=== PATIENT | female | born 1945 | race Caucasian/White ===

== ENCOUNTER 2017-12-26 01:39 | Inpatient (IN) | payer OTHER, MEDICARE ==
[~2017-12-26] VITALS: Ht 149.9 cm; Wt 64.6 kg
[~2017-12-26 01:39] MED LIST: ALLEGRA ALLERG180 M1 PO; ARICEPT10 M1 PO; ASPIRIN EC81 M1 PO; CELEBREX50 M1 PO; COQ-10100 MG; DILTIAZEM 24HR240 M1 PO; ESTRADIOL0.5 M1 PO; LEXAPRO20 M1 PO; LIPITOR40 M1 PO; LISINOPRIL40 M1 PO; NAMENDA XR28 M1 PO; OMEPRAZOLE40 M1 PO; SYNTHROID75 MCG PO; VITAMIN B-121000 MC3 PO
[2017-12-26] MEDS ORDERED: ASPIRIN EC325 M2 PO ×2 (11:24→15:23)
[2017-12-26] MEDS ORDERED: COLACE100 M1 PO (11:24)
[2017-12-26] MEDS ORDERED: MIRALAX17 G1 PO (11:24)
[2017-12-26] MEDS ORDERED: NORCO 5-325 TA1 EACH PO (11:24)
--- NOTE | 2017-12-26 11:43 | Surg Short-stay <48hrs Dis Sum ---
Visit Information Visit Dates Admission Date: 12/26/17 Discharge Date: 12/28/17 Surgical Short Stay DC Summary Admission Diagnosis: RIGHT KNEE OSTEOARHTRITIS Final Diagnosis: RIGHT KNEE OSTEOARTHRITIS Procedure(s): RIGHT TOTAL KNEE ARTHROOPLASTY Summary/Significant Findings: Patient was admitted to the hospital for an elective total joint replacement. The procedure was tolerated well and patient was transferred to a general surgical floor. Diet was advanced and tolerated, and the patient voided spontaneously. The patient was evaluated and treated by physical therapy. At the time of hospital discharge, the vital signs were stable, neurovascular status was intact, and pain was controlled with the use of oral pain medications. Condition at Discharge: STABLE Discharge Disposition: home health services Discharge instructions provided to patient/family: Yes Post discharge follow-up plan: CALL OFFICE FOR FOLLOW-UP APPOINTMENT Copies to: Gee Reeves MD
--- NOTE | 2017-12-26 11:47 | Patient Discharge Instructions ---
Discharge Instructions General Discharge Information You were seen/treated for: RIGHT KNEE OSTEOARTHRITIS You had these procedures: RIGHT TOTAL KNEE REPLACEMENT Watch for these problems: Increasing pain despite the use of pain medication Increasing redness, warmth or swelling Drainage of any type from incision Inability to bear weight on operative leg Persistent nausea and vomiting Fever greater than 101.5 degrees Please keep wound clean and dry. No ointments or lotions of any type on or near incision at any time. No exceptions. Your dressing will be changed by your nurse on the second day after your surgery. Daily dry dressing changes are recommended each day thereafter. Do not soak your wound in a bath at any time until otherwise indicated by your surgeon. You may shower, please dry wound immediately after shower with a clean towel. Call Surgeon to remove: Armani (2 WEEKS) Do not soak the wound: No Daily wet to dry dressings: No No bath, but you may shower: No Diet Continue normal diet: Yes Activity Full Activity/No Limits: No (NOTHING STRENUOUS) Activity Self Limited: Yes Activity Limited to: Weight bear as tolerated Acute Coronary Syndrome Inclusion Criteria At DC or during hospital stay patient has or had the following: ACS DIAGNOSIS No Discharge Core Measures Meds if any: Prescribed or Continued at Discharge SELINA/ARB if EF <40% No Meds if any: NOT Prescribed or Continued at Discharge Congestive Heart Failure Inclusion Criteria At DC or during hospital stay patient has or had the following: CHF DIAGNOSIS No Discharge Core Measures Meds if any: Prescribed or Continued at Discharge Meds if any: NOT Prescribed or Continued at Discharge Cerebrovascular accident Inclusion Criteria At DC or during hospital stay patient has or had the following: CVA/TIA Diagnosis No Discharge Core Measures Meds if any: Prescribed or Continued at Discharge Antithrombotic No Statin (required if LDL =>70) No Anticoagulant Yes Meds if any: NOT Prescribed or Continued at Discharge Venous thromboembolism Inclusion Criteria VTE Diagnosis No VTE Type NONE VTE Confirmed by (Test) NONE Discharge Core Measures - Per Current guidelines, there needs to be overlap - treatment for the first 5 days of Warfarin therapy. - If discharged on Warfarin prior to 5 days of - overlap therapy, the patient will need to be - assessed for post discharge needs including - *Post discharge parental anticoagulation - *Warfarin and/or parental anticoagulation education - *Follow up date to check INR post discharge At least 5 days overlap therapy as Inpatient No Meds if any: Prescribed or Continued at Discharge Note: Overlap Therapy is Warfarin and Anticoagulant Meds if any: NOT Prescribed or Continued at Discharge
--- NOTE | 2017-12-26 13:44 | Operative Report ---
Operative/Inv Procedure Report Surgery Date: 12/26/17 Name of Procedure: Right total knee replacement Pre-Operative Diagnosis: Primary right knee DJD Post-Operative Diagnosis: Same Estimated Blood Loss: 50ml to 100ml Surgeon/Soda Tester: Lala JAIMES,Gee Johnson Anesthesia: block Operative/Procedure Note Note: Description of Procedure: The patient was taken to the operating room and positively identified. After induction of spinal anesthesia and administration of appropriate pre-operative antibiotics, the patient was positioned supine on the operating room table and all bony prominences were well padded. A well-padded pneumatic tourniquet was placed on the right upper thigh. After performing a surgical timeout, the right lower extremity was prepped and draped in the usual sterile fashion. After exsanguination with Esmarch the tourniquet was inflated to 250mm of mercury. A standard medial parapatellar approach was made to the knee. This was carried down through skin and subcutaneous tissue to the level of the fascia. Meticulous hemostasis was maintained with Bovie electrocautery. The extensor mechanism and patellar retinaculum were opened sharply and the patella was everted. The infrapatellar fat was resected in order to improve exposure. Osteophytes were trimmed from the patella and femoral condyles and the patella was re-everted and tucked laterally. A medial release was performed and the cruciate ligaments were resected. The tibia was then subluxed anteriorly. Utilizing the appropriate extra-medullary guide, the proximal tibia was trimmed perpendicular to the long axis of the tibial shaft. Attention was then turned to the femur. After opening the medullary canal, the distal femoral cut was made in 6 degrees of valgus utilizing the appropriate intra-medullary guide. The extension gap was checked and found to be appropriate. The femur was then sized and the remainder of the femoral cuts were made with a size #2 4-in-1 femoral cutting guide. The flexion gap was checked and found to be symmetric and appropriate. The knee was then trialed with a size #2 CR femoral component, a size #2 tibial component and a size 11 CS mm polyethylene insert. The patella was trimmed to accept an A 29 patella. This yielded excellent range of motion, stability and patellar tracking. All trial components were removed and the knee was copiously irrigated with sterile saline. All components were cemented into place with [employer] Simplex cement. All the components were of the [employer] Triathlon knee system of the above stated sizes. The knee was again irrigated after cementation. The extensor mechanism and patellar retinaculum were repaired using interrupted #1 vicryl suture. The skin was re-approximated with 2-0 vicryl and closed with maycol. A sterile dressing was applied, the tourniquet was deflated, the patient was awakened and taken to the recovery room in satisfactory condition.
[2017-12-26 14:55] VITALS: BP 124/80
[2017-12-26 15:14] VITALS: BP 110/70
--- NOTE | 2017-12-26 15:28 | Admission Core Measures ---
Acute Coronary Syndrome (CM) ACS Core Measures Acute Coronary Syndrome Diagnosis No Congestive Heart Failure (NEW) CHF Core Measures Congestive Heart Failure Diagnosis No Cerebrovascular Accident (NEW) CVA Core Measures CVA/TIA Diagnosis No Venous Thromboembolism VTE Core Chaya (View Protocol) VTE Risk Factors Surgery No Mechanical VTE Prophylaxis d/t N/A MechProphylax Ordered No VTE Pharm Prophylaxis d/t NA PharmProphylax ordered Problem List As ranked by this Provider includes Assessment & Plan 1. Unilateral primary osteoarthritis, right knee HOME MEDS Home Med List Aspirin (Ecotrin*) 81 MG TABLET.DR 1 TAB PO DAILY CARDIAC (Reported) Aspirin (Ecotrin*) 325 MG TABLET.DR 1 TAB PO BID DVT PROPHYLAXIS Atorvastatin Calcium (Lipitor) 40 MG TABLET 1 TAB PO DAILY CHOLESTEROL ( Reported) Celecoxib (Celebrex) 50 MG CAPSULE 1 CAP PO DAILY PAIN (Reported) Cyanocobalamin (Vitamin B-12) 1,000 MCG TABLET 1 TAB PO DAILY SUPPLEMENT ( Reported) Diltiazem HCl (Diltiazem 24HR Cd) 240 MG CAP.ER.24H 1 CAP PO D HTN (Reported) Docusate Sodium (Colace) 100 MG CAPSULE 1 CAP PO BID PREVENT CONSTIPATION Donepezil HCl (Aricept) 10 MG TABLET 1 TAB PO QPM ALZHEIMER (Reported) Escitalopram Oxalate (Lexapro) 20 MG TABLET 1 TAB PO DAILY MOOD (Reported) Estradiol 0.5 MG TABLET 1 TAB PO DAILY REPLACEMENT (Reported) Fexofenadine HCl (Elizabeth Allergy) 180 MG TABLET 1 TAB PO DAILY ALLERGIES ( Reported) Hydrocodone/Acetaminophen ([place] 5-325 Tablet) 5 MG-325 MG TABLET 1-2 TAB PO Q4-6 PRN PRN POSTOP PAIN Levothyroxine Sodium (Synthroid) 75 MCG TABLET 1 TAB PO DAILY REPLACEMENT ( Reported) Lisinopril 40 MG TABLET 1 TAB PO DAILY HTN (Reported) Memantine HCl (Namenda XR) 28 MG CAP.SPR.24 1 CAP PO DAILY ALHEIMER (Reported ) Omeprazole 40 MG CAPSULE.DR 1 CAP PO DAILY GERD (Reported) Polyethylene Glycol 3350 (Miralax) 17 GRAM POWD.PACK 1 PAC PO DAILY PREVENTION CONSTIPATION
--- NOTE | 2017-12-26 15:35 | PN- Orthopedic ---
Subjective Subjective: No acute post operative events reported. Pt states that she has some residual numbness to her operative leg. She is without complaints of chest pain, shortness of breath and difficulty breathing. She is without complaints of nausea and vomitting. She has been oob to chair with PT, however, did not ambulate due to right leg block in place. She has voided. Objective Vital Signs and I&Os Vital Signs Date Time Temp Pulse Resp B/P B/P Pulse O2 O2 Flow FiO2 Mean Ox Delivery Rate 12/26 1514 98.1 65 16 110/70 95 Room Air Room Air Intake & Output 12/26 1600 12/26 0800 12/26 0000 12/25 1600 12/25 0800 12/25 0000 Intake Total Output Total Balance Patient 136 lb 135 lb Weight Weight Reported by Patient Measurement Method Physical Exam: General: Alert, oriented to person, place and time Cardiac: Pulm: Abd: Extremities: Moves all extremities, distal sensation intact. Skin warm and well perfused. DP pulses palpable. Dressing dry and intact. On Q in pace. Bilateral calves soft and non-tender. Assessment/Plan Assessment/Plan This is a 72 year old female, POD 0, s/p R tkr. PMH signficant for alzheimers and htn. Has social hx of smoking, 5 cigarettes per day -add nicotine patch now -vicodin for pain control, no added offirmev -ASA 325 bid for dvt ppx -OOB, wbat, assist at all times when standing or ambulating -ancef x2 additional doses for abx ppx -bowel regimen scheduled anticipate dc to str in 2 nights will discuss poc with Dr. Reeves Core Measures Venous Thromboembolism VTE Risk Factors Surgery No Mechanical VTE Prophylaxis d/t N/A MechProphylax Ordered No VTE Pharm Prophylaxis d/t NA PharmProphylax ordered
[2017-12-26 19:18] VITALS: BP 118/64
[2017-12-26 22:16] VITALS: BP 152/70
[2017-12-27 01:13] VITALS: BP 134/68
[2017-12-27 04:25] VITALS: BP 170/80
--- NOTE | 2017-12-27 09:15 | PN- Orthopedic ---
Subjective Subjective: Pt. is demented but cooperative. She did not remeber having surgey yesterday. She denies pain. Had breakfast without nausea. Ambularted with PT this morning. Objective Vital Signs and I&Os Vital Signs Date Time Temp Pulse Resp B/P B/P Pulse O2 O2 Flow FiO2 Mean Ox Delivery Rate 12/27 0809 83 170/80 05/ 0425 98.0 83 20 170/80 95 Room Air 12/27 0113 97.8 63 20 134/68 94 Room Air 12/26 2216 98.2 74 20 152/70 94 Room Air 12/26 2201 Room Air Room Air 12/26 1918 98.0 67 20 118/64 92 Room Air 12/26 1709 110/70 05/ 1514 98.1 65 16 110/70 95 Room Air Room Air Intake & Output / 1600 / 0800 / 0000 / 1600 12/26 0800 / 0000 Intake Total 400 225 Output Total Balance 400 225 Intake, IV 400 225 Patient 142 lb 136 lb Weight Weight Reported by Patient Measurement Method Alert, no distress.Sitting in chair. Lungs clear bilat Heart regular Abdomen soft, enrrique distended. RLE with dressing / Jacoby bandage on. On Q pump in place , insertion site intact. Nerorovascular check intact/ Good peripheral perfusion. No edema. Assessment/Plan Assessment/Plan s/p R TKA POD#1 , baseline dementia. Stable. Mildly elevated BP, currently on home meds.Continue to monitor. RLE perfusion and neurovascular check intact.Working with PT to increase ambulation/ mobilty and emdurance. Dementia is baseline. Pt. is cooperative, follows directions. On ASA BID for anticoagulation Dressing change and removal On Q pump tomorrow. Pt. is currently comfortable on current regimen. I anticipate d/c to STR tomorrow. Core Measures Venous Thromboembolism VTE Risk Factors Surgery No Mechanical VTE Prophylaxis d/t N/A MechProphylax Ordered No VTE Pharm Prophylaxis d/t NA PharmProphylax ordered
[2017-12-27 09:44] LABS: ABSOLUTE BASOPHIL COUNT 0 /CUMM (0.0-0.2); ABSOLUTE EOSINOPHIL COUNT 0 /CUMM (0.0-0.7); ABSOLUTE GRANULOCYTE CT 11.8 /CUMM (1.4-6.5); ABSOLUTE LYMPH COUNT 0.8 /CUMM (1.2-3.4); ABSOLUTE MONOCYTE COUNT 0.9 /CUMM (0.10-0.60); BASOPHIL % 0.1 % (0.0-2.0); EOSINOPHIL % 0 % (0-5); GRANULOCYTE % 87.3 % (42.2-75.2); HEMATOCRIT 35.2 % (37-47); MEAN CORPUSCULAR HGB 32.3 PG (27.0-31.0); MEAN CORPUSCULAR HGB CONC 33.7 G/DL (33.0-37.0); MEAN CORPUSCULAR VOLUME 95.9 FL (81.0-99.0); MEAN PLATELET VOLUME 9.7 FL (7.4-10.4); PLATELET COUNT 282 /CUMM (130-400); RED BLOOD CELL CT 3.67 /CUMM (4.20-5.40); WHITE BLOOD CELL COUNT 13.5 /CUMM (4.8-10.8)
[2017-12-27 11:18] VITALS: BP 136/64
[2017-12-27 16:30] VITALS: BP 150/80
[2017-12-27 22:46] VITALS: BP 130/76
[2017-12-28 06:59] VITALS: BP 136/68
--- NOTE | 2017-12-28 07:42 | PN- Orthopedic ---
Subjective Subjective: Patient doing well this morning. Pain well controlled. Ambulating, voiding and tolerating a regular diet. No other issues or complaints. Objective Vital Signs and I&Os Vital Signs Date Time Temp Pulse Resp B/P B/P Pulse O2 O2 Flow FiO2 Mean Ox Delivery Rate 12/28 0659 97.7 74 20 136/68 94 / 2246 98.0 74 20 130/76 97 Room Air 12/27 1630 98.0 68 18 150/80 95 Room Air 12/27 1118 98.7 80 18 136/64 95 Room Air 12/27 0809 83 170/80 Intake & Output 12/28 0800 12/28 0000 12/27 1600 12/27 0800 12/27 0000 12/26 1600 Intake Total 350 400 225 Output Total 750 500 Balance -750 -150 400 225 Intake, IV 400 225 Intake, Oral 350 Output, Urine 750 500 Patient 142 lb 136 lb Weight Weight Reported by Patient Measurement Method Physical Exam: General: A, A, NAD Extremities: Right Jacoby in place, this was taken down, incision is c/d/i with amycol in place, no surrounding edema, erythema or ecchymosis Current Medications: Current Medications Sig/Tirso Start time Last Medication Dose Route Stop Time Status Admin Aspirin Buffered 325 MG BID 12/27 0900 AC 12/27 PO 2044 Atorvastatin Calcium 20 MG 1700 12/26 1700 AC 12/27 PO 1720 Dextrose/Sodium 1,000 ML .[id number] 12/26 111 DC 12/26 Chloride IV 1714 Diltiazem HCl 240 MG DAILY 12/26 1108 AC 12/27 PO 0812 Docusate Sodium 100 MG BID 12/26 2100 AC 12/27 PO 2044 Donepezil HCl 10 MG AT BEDTIME 12/26 2100 AC 12/27 PO 2044 Estradiol 0.5 MG DAILY 12/26 1107 AC 12/27 PO 0811 Hydrocodone Bitart/ 1 TAB Q6P PRN 12/26 1115 AC 12/27 Acetaminophen PO 1753 Hydrocodone Bitart/ 2 TAB Q6P PRN 12/26 1115 AC 12/28 Acetaminophen PO 0327 Levothyroxine Sodium 0.075 MG DAILY AC 12/26 1106 AC 12/28 PO 0559 Lisinopril 40 MG DAILY 12/26 1106 AC 12/27 PO 0809 Melatonin 5 MG AT BEDTIME 12/27 2100 AC 12/27 PO 2043 Memantine 10 MG BID 12/26 2100 AC 12/27 PO 204 Morphine Sulfate 2 MG Q2P PRN 12/26 1115 AC 12/27 IV 2231 Nicotine 14 MG DAILY 12/26 1545 AC 12/27 TOP 0809 Omeprazole 40 MG DAILY AC 12/26 1104 AC 12/28 PO 0559 Ondansetron HCl 4 MG Q6P PRN 12/26 1115 AC IV Patient Medication 1 ED ONE ONE 12/27 1215 DC Teaching ED 12/27 1216 Polyethylene Glycol 17 GM DAILY 12/27 0900 AC 12/27 PO 0809 Results Last 48 Hours of Labs: Laboratory Tests 12/27 804 Chemistry Sodium (137 - 145 mmol/L) 140 Potassium (3.5 - 5.1 mmol/L) 3.8 Chloride (98 - 107 mmol/L) 103 Carbon Dioxide (22 - 30 mmol/L) 26 Anion Gap (5 - 16) 11 BUN (7 - 17 mg/dL) 12 Creatinine (0.5 - 1.0 mg/dL) 0.8 Estimated GFR (>60 ml/min) > 60 BUN/Creatinine Ratio (7 - 25 %) 15.0 Hematology CBC w Diff MAN DIFF ORDERED WBC (4.8 - 10.8 /CUMM) 13.5 H RBC (4.20 - 5.40 /CUMM) 3.67 L Hgb (12.0 - 16.0 G/DL) 11.9 L Hct (37 - 47 %) 35.2 L MCV (81.0 - 99.0 FL) 95.9 MCH (27.0 - 31.0 PG) 32.3 H MCHC (33.0 - 37.0 G/DL) 33.7 RDW (11.5 - 14.5 %) 14.0 Plt Count (130 - 400 /CUMM) 282 MPV (7.4 - 10.4 FL) 9.7 Gran % (42.2 - 75.2 %) 87.3 H Lymphocytes % (20.5 - 51.1 %) 5.8 L Monocytes % (1.7 - 9.3 %) 6.8 Eosinophils % (0 - 5 %) 0 Basophils % (0.0 - 2.0 %) 0.1 Absolute Granulocytes (1.4 - 6.5 /CUMM) 11.8 H Segmented Neutrophils (42.2 - 75.2 %) 84 H Band Neutrophils (0.0 - 5.0 %) 10 H Absolute Lymphocytes (1.2 - 3.4 /CUMM) 0.8 L Lymphocytes (20.5 - 51.1 %) 5 L Monocytes (1.7 - 9.3 %) 1 L Absolute Monocytes (0.10 - 0.60 /CUMM) 0.9 H Absolute Eosinophils (0.0 - 0.7 /CUMM) 0 Absolute Basophils (0.0 - 0.2 /CUMM) 0 Platelet Estimate (ADEQUATE) ADEQUATE Hypochromic-Microcytic 1+ Anisocytosis 1+ Assessment/Plan Assessment/Plan s/p R TKA POD#2 , baseline dementia. Stable. Continue home meds RLE perfusion and neurovascular check intact Working with PT to increase ambulation/ mobilty and endurance Dementia at baseline. Pt. is cooperative, follows directions On ASA BID for anticoagulation Dressing change completed at bedside today Pt. is currently comfortable on current analgesia regimen I anticipate d/c today Will d/w attending Problem List: 1. Unilateral primary osteoarthritis, right knee Core Measures Venous Thromboembolism VTE Risk Factors Surgery No Mechanical VTE Prophylaxis d/t N/A MechProphylax Ordered No VTE Pharm Prophylaxis d/t NA PharmProphylax ordered
[2017-12-28 09:08] VITALS: BP 136/68
== END 2017-12-28 11:50 | disposition home health service (06) | DRG 470 ==
LOC: 2NB 01:39 → SDA 01:39 → ENRESERV 12:40 → ENTRNSPT 13:25 → EDTRNSPTSTS 13:35 → EDTRNSPT 13:37 → 2NB 14:07 → CMPTRNSPT 14:13 → ENPENDDIS 12-28 10:54 → ENTRNSPT 12-28 11:35 → EDTRNSPTSTS 12-28 11:42 → EDTRNSPT 12-28 11:42 → 2NB 12-28 11:50 → CMPTRNSPT 12-28 12:30
PROVIDERS: Physician Assistant
PROC: 3E0T3BZ Introduction of Anesthetic Agent into Peripheral Nerves and Plexi, Percutaneous Approach (ICD-10-PCS; principal; 2017-12-26)
PROC: 0SRC0J9 Replacement of Right Knee Joint with Synthetic Substitute, Cemented, Open Approach (ICD-10-PCS; principal; 2017-12-26)
DX: M17.11 Unilateral primary osteoarthritis, right knee (principal); I34.1 Nonrheumatic mitral (valve) prolapse; G30.9 Alzheimer's disease, unspecified; E03.9 Hypothyroidism, unspecified; E78.5 Hyperlipidemia, unspecified; I10 Essential (primary) hypertension; K21.9 Gastro-esophageal reflux disease without esophagitis; J30.9 Allergic rhinitis, unspecified; M19.90 Unspecified osteoarthritis, unspecified site; M48.00 Spinal stenosis, site unspecified; Z98.1 Arthrodesis status; Z96.652 Presence of left artificial knee joint; Z96.611 Presence of right artificial shoulder joint; Z90.710 Acquired absence of both cervix and uterus; I70.90 Unspecified atherosclerosis; F17.200 Nicotine dependence, unspecified, uncomplicated
CPT/HCPCS: 2NBP; 36592; 82436; 88305; 97110-GO; 97116-GO; 97161-GP; 97530-GO; C1713; J0131; J0690; J2405; J2795; J3490; J7042